=== PATIENT | female | born 1955 | race Caucasian/White ===

== ENCOUNTER → 2016-11-29 | Outpatient (CLI) | payer BC ==
[~2016-11-29] MED LIST: ACETAMINOPHEN TAB 325 MG TAB PO ONE; LORATADINE 10 MG TAB PO ONE; SODIUM CHLORIDE 0.9% 250 ML in EMPTY BAG 1 BAG IV PRN; SODIUM CHLORIDE 0.9% 500 ML in EMPTY BAG 1 BAG IV PRN
[2016-11-29 09:11] VITALS: TEMP 98
[2016-11-29 10:34] VITALS: BP 141/67; PULSE 76; RESP 16
== END | disposition home or self-care (01) ==
LOC: PROCWHC3 08:46
PROVIDERS: ATTEND Internal Medicine
DX: K50.113 Crohn's disease of large intestine with fistula (principal); D72.9 Disorder of white blood cells, unspecified
CPT/HCPCS: 96361; 96413; 96415; J1745

== ENCOUNTER → 2017-01-10 | Outpatient (CLI) | payer BC ==
[~2017-01-10] MED LIST changes: -ACETAMINOPHEN TAB 325 MG TAB PO ONE; -LORATADINE 10 MG TAB PO ONE
[2017-01-10 09:04] VITALS: TEMP 97.6
[2017-01-10 09:26] LABS: Basophils # (A) 0.1 k/uL (0-0.2); Basophils % (A) 1 %; CHCM 35.2; Eosinophils # (A) 0.1 k/uL (0-0.7); Eosinophils % (A) 2 %; HDW 3.15; HGB 13.3 gm/dL (11.4-16.0); Luc # (Auto) 0.13; Luc % (Auto) 3; Lymphocytes # (A) 0.2 k/uL (1.0-4.8); Lymphocytes % (A) 4 %; MCH 31.3 pg (25.0-35.0); MCHC 34.2 g/dL (31.0-37.0); MCV 91.4 fL (80.0-100.0); Mean Platelet Volume 6.6; Monocytes # (A) 0.3 k/uL (0-1.0); Monocytes % (A) 6 %; Neutrophils # (A) 4.3 k/uL (1.3-7.7); Neutrophils % (A) 84 %; RBC 4.26 m/uL (3.80-5.40); RDW 13.3 % (11.5-15.5); WBC 5.1 k/uL (3.8-10.6); WBC (Perox) 5.46
[2017-01-10 09:34] LABS: ALT 27 U/L (9-52); AST 20 U/L (14-36); Alkaline Phosphatase 113 U/L (38-126); Anion Gap 12 mmol/L; Blood Urea Nitrogen 16 mg/dL (7-17); Calcium 9.4 mg/dL (8.4-10.2); Carbon Dioxide 29 mmol/L (22-30); Chloride 102 mmol/L (98-107); Glucose 143 mg/dL (74-99); Non-African American GFR(MDRD) >60 (>60 ml/min/1.73 sqM); Potassium 4.5 mmol/L (3.5-5.1); Sodium 143 mmol/L (137-145); Total Bilirubin 0.6 mg/dL (0.2-1.3); Total Protein 7.9 g/dL (6.3-8.2)
[2017-01-10 10:11] VITALS: RESP 18
[2017-01-10 10:43] VITALS: BP 112/74; PULSE 55
== END | disposition home or self-care (01) ==
LOC: PROCWHC3 08:35
PROVIDERS: ATTEND Physician Assistant
DX: K50.80 Crohn's disease of both small and large intestine without complications (principal)
CPT/HCPCS: 80053; 85025; 96361; 96413; 96415; 36415; J1745

== ENCOUNTER → 2017-01-16 | Outpatient (CLI) | payer BC ==
--- NOTE | 2017-01-16 10:35 | WWHP ---
DATE OF SERVICE: 01/16/2017 CHIEF COMPLAINT: The patient is here for her routine gynecologic exam. HPI: This is a 61-year-old, G2, P2 with an LMP of 2008. Patient does experience hot flashes, which are tolerable and she is declining any kind of medication for this. 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 She states she has less symptoms when the Crohn disease is under control. She is on a new dose of Remicade, which seems to be controlling her Crohn disease fairly well. At this time she is no longer noticing any stool from the vagina. She is declining any surgical correction for the rectovaginal fistula and would like to continue to work on controlling the Crohn disease. PAST MEDICAL HISTORY: Crohn disease with related rectovaginal fistula since about 2006, chronic hypertension, seasonal allergies, and depression. MEDICATIONS: 1. Remicade IV infusion q.6 weeks. 2. Atenolol 50 mg daily. 3. Imuran 150 mg b.i.d. 4. Vitamin D supplement 1000 units daily. 5. Calcium supplement daily. ALLERGIES: No known drug allergies. PAST SURGICAL HISTORY: Cataract surgery 2015, sinus surgery 2013, hemorrhoid surgery in the past, colonoscopy 2008 and 2014, D&C in 03/2015. 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 She has no history of STDs and has been menopausal since 2007. Family history is unchanged from the 2016 H&P. SOCIAL HISTORY: She denies tobacco, alcohol, and drug use and has been since 1975 and has been disabled because of her Crohn disease and fistula. She is sexually active. REVIEW OF SYSTEMS: She has gained about 10 pounds over the last year. She denies respiratory or cardiac problems. GI: Occasional stomach upset, which she attributes to the Remicade. PHYSICAL EXAM: Blood pressure 143/85. Height 5 feet 1 inch. Weight 168 pounds. Temperature 98.5, pulse 69. This is a well-developed, well-nourished white female who is alert and oriented x3 in no acute distress. HEENT is within normal limits. NECK: Supple without mass or thyromegaly. CHEST AND LUNGS: Clear to auscultation. HEART: Regular rate and rhythm. Breasts are without mass or discharge. There is central left nipple inversion which she states it has been this way for most of her life. Axillary exam is negative for adenopathy. BACK: Negative for CVA tenderness. ABDOMEN: Soft, nontender, without palpable masses. PELVIC EXAM: External genitalia reveals some mild atrophy without lesions. Cervix and vagina reveal mild atrophy without lesions. The cervix is somewhat stenotic secondary to atrophy. No stool or blood is noted in the vagina. No rectovaginal fistula is visible. There is no significant prolapse. The uterus is midposition, nongravid size and nontender. There are no palpable adnexal masses or tenderness. Rectal and rectovaginal exam was refused by the patient. EXTREMITIES: Nontender. IMPRESSION: A 61-year-old menopausal female with a history of rectovaginal fistula with no significant symptoms at this time and no significant physical findings at this time noted with vaginal exam. PLAN: 1. Pap smear was performed. 2. Self breast examination was discussed. 3. Mammogram will be done today. 4. Osteoporosis prevention was discussed. 5. We have discussed her rectovaginal fistula. She will let me know if he she is having greater symptoms or she would consider surgical correction of the fistula. At this time, she will continue conservative management. 6. She will return in one year.
--- NOTE | 2017-01-17 11:22 | MM ---
Reason for exam: screening (asymptomatic). Last mammogram was performed 1 year and 2 months ago. History: Patient is postmenopausal and has history of colon cancer at age 60. Family history of breast cancer in mother at age 75. Physical Findings: A clinical breast exam by your physician is recommended on an annual basis and results should be correlated with mammographic findings. MG Screening Mammo w CAD Bilateral CC and MLO view(s) were taken. Prior study comparison: November 29, 2015, bilateral MG screening mammo w CAD. November 16, 2014, bilateral MG screening mammo w CAD. The breast tissue is heterogeneously dense. This may lower the sensitivity of mammography. Finding: There are typically benign round calcifications. There is no discrete abnormality. No significant changes in finding since November 29, 2015 and November 16, 2014. ASSESSMENT: Benign, BI-RAD 2 RECOMMENDATION: Routine screening mammogram of both breasts in 1 year.
== END | disposition home or self-care (01) ==
LOC: WWCWWP 08:29
PROVIDERS: ATTEND Obstetrics & Gynecology
DX: Z12.31 Encounter for screening mammogram for malignant neoplasm of breast (principal)

== ENCOUNTER → 2017-02-22 | Outpatient (CLI) | payer BC ==
[2017-02-22 08:57] VITALS: TEMP 98.3
[2017-02-22 09:40] VITALS: RESP 18
[2017-02-22 10:39] VITALS: BP 106/66; PULSE 70
== END | disposition home or self-care (01) ==
LOC: PROCWHC3 08:34
PROVIDERS: ATTEND Internal Medicine Gastroenterology
DX: K50.80 Crohn's disease of both small and large intestine without complications (principal)
CPT/HCPCS: 96361; 96413; 96415; J1745

== ENCOUNTER → 2017-04-05 | Outpatient (CLI) | payer BC ==
[2017-04-05 08:45] VITALS: TEMP 98.2
[2017-04-05 09:48] LABS: ALT 34 U/L (9-52); AST 28 U/L (14-36); Alkaline Phosphatase 103 U/L (38-126); Anion Gap 12 mmol/L; Blood Urea Nitrogen 17 mg/dL (7-17); Calcium 9.1 mg/dL (8.4-10.2); Carbon Dioxide 24 mmol/L (22-30); Chloride 104 mmol/L (98-107); Glucose 137 mg/dL (74-99); Non-African American GFR(MDRD) >60 (>60 ml/min/1.73 sqM); Potassium 4.4 mmol/L (3.5-5.1); Sodium 140 mmol/L (137-145); Total Bilirubin 0.6 mg/dL (0.2-1.3); Total Protein 7.7 g/dL (6.3-8.2)
[2017-04-05 10:09] LABS: Basophils % (A) 1 %; CH 33.1; CHCM 36.2; Eosinophils # (A) 0.1 k/uL (0-0.7); Eosinophils % (A) 3 %; HCT 36.4 % (34.0-46.0); HDW 3.33; HGB 12.9 gm/dL (11.4-16.0); Luc # (Auto) 0.16; Luc % (Auto) 4; Lymphocytes # (A) 0.3 k/uL (1.0-4.8); Lymphocytes % (A) 9 %; MCH 32.4 pg (25.0-35.0); MCHC 35.3 g/dL (31.0-37.0); MCV 91.7 fL (80.0-100.0); Mean Platelet Volume 6.9; Monocytes # (A) 0.4 k/uL (0-1.0); Monocytes % (A) 9 %; Neutrophils # (A) 2.8 k/uL (1.3-7.7); Neutrophils % (A) 74 %; RBC 3.97 m/uL (3.80-5.40); RDW 14.2 % (11.5-15.5); WBC 3.8 k/uL (3.8-10.6); WBC (Perox) 4.08
[2017-04-05 10:25] VITALS: BP 139/74; PULSE 55; RESP 16
== END | disposition home or self-care (01) ==
LOC: PROCWHC3 08:24
PROVIDERS: ATTEND Internal Medicine Gastroenterology
DX: K50.80 Crohn's disease of both small and large intestine without complications (principal)
CPT/HCPCS: 80053; 85025; 96413; 96415; 36415; J1745

== ENCOUNTER → 2017-05-17 | Outpatient (CLI) | payer BC ==
[2017-05-17 07:50] VITALS: RESP 16; TEMP 98.2
[2017-05-17 09:33] VITALS: BP 124/66; PULSE 67
== END | disposition home or self-care (01) ==
LOC: PROCWHC3 07:12
PROVIDERS: ATTEND Internal Medicine Gastroenterology
DX: K50.90 Crohn's disease, unspecified, without complications (principal)
CPT/HCPCS: 96413; 96415; J1745

== ENCOUNTER → 2017-07-04 | Outpatient (CLI) | payer BC ==
[~2017-07-04] MED LIST changes: -SODIUM CHLORIDE 0.9% 250 ML in EMPTY BAG 1 BAG IV PRN
[2017-07-04 09:42] VITALS: TEMP 98.2
[2017-07-04 10:18] VITALS: RESP 16
[2017-07-04 10:38] LABS: Basophils % (A) 1 %; CH 32.5; CHCM 35.2; Eosinophils # (A) 0.2 k/uL (0-0.7); Eosinophils % (A) 4 %; HCT 36.2 % (34.0-46.0); HDW 3.31; HGB 12.3 gm/dL (11.4-16.0); Luc # (Auto) 0.12; Luc % (Auto) 3; Lymphocytes # (A) 0.3 k/uL (1.0-4.8); Lymphocytes % (A) 6 %; MCH 31.6 pg (25.0-35.0); MCHC 34.1 g/dL (31.0-37.0); MCV 92.8 fL (80.0-100.0); Mean Platelet Volume 7.7; Monocytes # (A) 0.3 k/uL (0-1.0); Monocytes % (A) 6 %; Neutrophils # (A) 3.4 k/uL (1.3-7.7); Neutrophils % (A) 81 %; RDW 14.3 % (11.5-15.5); WBC 4.2 k/uL (3.8-10.6); WBC (Perox) 4.05
[2017-07-04 10:45] VITALS: BP 123/74; PULSE 61
[2017-07-04 10:49] LABS: ALT 66 U/L (9-52); AST 38 U/L (14-36); Alkaline Phosphatase 91 U/L (38-126); Anion Gap 13 mmol/L; Blood Urea Nitrogen 15 mg/dL (7-17); Calcium 9.2 mg/dL (8.4-10.2); Carbon Dioxide 23 mmol/L (22-30); Chloride 105 mmol/L (98-107); Glucose 150 mg/dL (74-99); Non-African American GFR(MDRD) >60 (>60 ml/min/1.73 sqM); Potassium 4.4 mmol/L (3.5-5.1); Sodium 141 mmol/L (137-145); Total Bilirubin 0.7 mg/dL (0.2-1.3); Total Protein 7.3 g/dL (6.3-8.2)
== END | disposition home or self-care (01) ==
LOC: PROCWHC3 08:26
PROVIDERS: ATTEND Internal Medicine Gastroenterology
DX: K50.80 Crohn's disease of both small and large intestine without complications (principal)
CPT/HCPCS: 80053; 85025; 96413; 96415; 36415; J1745

== ENCOUNTER → 2017-08-19 | Outpatient (CLI) | payer BC ==
[2017-08-19 09:08] VITALS: TEMP 97.8
[2017-08-19 09:47] LABS: ALT 61 U/L (9-52); AST 31 U/L (14-36); Alkaline Phosphatase 89 U/L (38-126); Anion Gap 10 mmol/L; Blood Urea Nitrogen 16 mg/dL (7-17); Carbon Dioxide 26 mmol/L (22-30); Chloride 104 mmol/L (98-107); Glucose 126 mg/dL (74-99); Non-African American GFR(MDRD) >60 (>60 ml/min/1.73 sqM); Potassium 4.3 mmol/L (3.5-5.1); Sodium 140 mmol/L (137-145); Total Bilirubin 0.4 mg/dL (0.2-1.3); Total Protein 7.2 g/dL (6.3-8.2)
[2017-08-19 10:14] LABS: Basophils # (A) 0.1 k/uL (0-0.2); Basophils % (A) 1 %; CH 30.6; CHCM 33.2; Eosinophils # (A) 0.1 k/uL (0-0.7); Eosinophils % (A) 4 %; HDW 3.39; HGB 11.8 gm/dL (11.4-16.0); Luc # (Auto) 0.16; Luc % (Auto) 5; Lymphocytes # (A) 0.2 k/uL (1.0-4.8); Lymphocytes % (A) 5 %; MCH 31.2 pg (25.0-35.0); MCHC 33.7 g/dL (31.0-37.0); MCV 92.6 fL (80.0-100.0); Mean Platelet Volume 6.8; Monocytes # (A) 0.3 k/uL (0-1.0); Monocytes % (A) 7 %; Neutrophils # (A) 2.7 k/uL (1.3-7.7); Neutrophils % (A) 78 %; RBC 3.78 m/uL (3.80-5.40); RDW 14.1 % (11.5-15.5); WBC 3.5 k/uL (3.8-10.6)
[2017-08-19 10:33] VITALS: BP 132/73; PULSE 57; RESP 16
== END ==
LOC: PROCWHC3 08:37
PROVIDERS: ATTEND Internal Medicine Gastroenterology
DX: K50.80 Crohn's disease of both small and large intestine without complications (principal); Z51.81 Encounter for therapeutic drug level monitoring
CPT/HCPCS: 80053; 85025; 96413; 96415; 36415; J1745

== ENCOUNTER → 2017-10-08 | Outpatient (CLI) | payer BC | END | disposition home or self-care (01) | LOC: PROCWHC3 09:24 | PROVIDERS: ATTEND Internal Medicine Gastroenterology | DX: Z53.9 Procedure and treatment not carried out, unspecified reason (principal) ==

== ENCOUNTER → 2017-10-08 | Outpatient (CLI) | payer BC ==
[2017-10-08 10:55] LABS: CH 28.3; CHCM 32.2; HCT 36.5 % (34.0-46.0); HDW 3.12; Hypochromasia Slight; MCH 29.1 pg (25.0-35.0); MCV 88.1 fL (80.0-100.0); Mean Platelet Volume 7.5; RBC 4.14 m/uL (3.80-5.40); RDW 14.3 % (11.5-15.5); WBC 4.3 k/uL (3.8-10.6)
[2017-10-08 11:31] LABS: ALT 78 U/L (9-52); AST 40 U/L (14-36); Alkaline Phosphatase 83 U/L (38-126); Anion Gap 8 mmol/L; Blood Urea Nitrogen 17 mg/dL (7-17); C Reactive Protein <5.0 mg/L (<10.0); Calcium 9.6 mg/dL (8.4-10.2); Carbon Dioxide 29 mmol/L (22-30); Chloride 103 mmol/L (98-107); Glucose 136 mg/dL (74-99); Non-African American GFR(MDRD) >60 (>60 ml/min/1.73 sqM); Potassium 5.2 mmol/L (3.5-5.1); Sodium 140 mmol/L (137-145); Total Bilirubin 0.7 mg/dL (0.2-1.3); Total Protein 7.2 g/dL (6.3-8.2)
[2017-10-08 12:18] LABS: Erythrocyte Sedimentation Rate 23 mm/hr (0-20)
== END | disposition home or self-care (01) ==
LOC: LABWHC1 10:00
PROVIDERS: ATTEND Internal Medicine Gastroenterology
DX: K50.90 Crohn's disease, unspecified, without complications (principal)
CPT/HCPCS: 36415; 80053; 85027; 85652; 86140

== ENCOUNTER → 2017-10-15 | Outpatient (CLI) | payer BC ==
[~2017-10-15] MED LIST changes: +TUBERCULIN PPD (SKIN TEST) 5 UNIT/0.1 ML (MDV) VIAL INTRADERMA ONE
[2017-10-15 09:36] VITALS: RESP 16; TEMP 98.1
[2017-10-15 11:07] VITALS: BP 147/69; PULSE 64
== END | disposition home or self-care (01) ==
LOC: PROCWHC3 09:05
PROVIDERS: ATTEND Internal Medicine Gastroenterology
DX: K50.80 Crohn's disease of both small and large intestine without complications (principal); Z51.81 Encounter for therapeutic drug level monitoring
CPT/HCPCS: 96413; 96415; 86580; J1745

== ENCOUNTER → 2018-01-07 | Outpatient (CLI) | payer BC ==
[2018-01-07 13:39] LABS: Basophils % (A) 1 %; Eosinophils # (A) 0.1 k/uL (0-0.7); Eosinophils % (A) 2 %; HCT 37.2 % (34.0-46.0); HGB 11.8 gm/dL (11.4-16.0); Hypochromasia Slight; Lymphocytes # (A) 0.4 k/uL (1.0-4.8); Lymphocytes % (A) 8 %; MCH 27.6 pg (25.0-35.0); MCHC 31.9 g/dL (31.0-37.0); MCV 86.7 fL (80.0-100.0); Mean Platelet Volume 7.8; Monocytes # (A) 0.4 k/uL (0-1.0); Monocytes % (A) 8 %; Neutrophils # (A) 3.8 k/uL (1.3-7.7); Neutrophils % (A) 79 %; Platelet Count 300 k/uL (150-450); RBC 4.29 m/uL (3.80-5.40); RDW 14.8 % (11.5-15.5); WBC 4.8 k/uL (3.8-10.6)
== END | disposition home or self-care (01) ==
LOC: LABWHC1 12:44
PROVIDERS: ATTEND Internal Medicine Gastroenterology
DX: K50.90 Crohn's disease, unspecified, without complications (principal)
CPT/HCPCS: 36415; 85025

== ENCOUNTER → 2018-01-21 | Outpatient (CLI) | payer BC ==
--- NOTE | 2018-01-21 13:42 | WWHP ---
[facility] - HISTORY AND PHYSICAL DATE OF DICTATION: 01/21/2018 CHIEF COMPLAINT: The patient is here for her routine gynecologic exam and mammogram. HPI: This is a 62-year-old G2, P2, with an LMP of 2007. The patient is without gynecologic complaints and denies any postmenopausal bleeding. She does have a history of rectovaginal fistula associated with Crohn's disease. She states she has not had any problems with this over the past year. PAST MEDICAL HISTORY: Crohn's disease with related rectovaginal fistula since about 2006, chronic hypertension, seasonal allergies and depression. MEDICATIONS: Remicade IV infusions Q 6 weeks. Atenolol 50 mg daily. Imuran 150 mg daily, vitamin D supplement 1000 units daily, but she has not been taking this regularly. Also, calcium supplement daily, which has also not been taken regularly. Multivitamin 1 daily. Fish oil supplement daily. Co Q10 daily. ALLERGIES: No known drug allergies. PAST SURGICAL HISTORY: Cataract surgery, sinus surgery, hemorrhoid surgery, and D and Cs in the past. Colonoscopy 2008 and in 2014. 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 She has been menopausal since 2007. FAMILY HISTORY: Brother had ulcerative colitis and lung cancer. Father had lung cancer. Mother had breast cancer. REVIEW OF SYSTEMS: She has lost 3 pounds over the last year. She denies respiratory, cardiac or GI problems. She has felt tired recently. PHYSICAL EXAM: Blood pressure 149/88, height 5 feet 2 inches, weight 165 pounds, temperature 98.0, pulse 68, BMI 30. This is a well-developed, well-nourished, white female, who is alert and oriented x3, in no acute distress. HEENT is within normal limits. NECK: Supple without mass or thyromegaly. Chest. LUNGS: Clear to auscultation. HEART: Regular rate and rhythm. Breasts are without mass or discharge. The left nipple is inverted. This has been this way most of her life. Axillary exam is negative for adenopathy. Back negative for CVA tenderness. ABDOMEN: Soft, nontender, without palpable masses. Pelvic exam external genitalia, reveals mild atrophy without lesions. Cervix and vagina reveals mild atrophy without lesions. There is no evidence of prolapse. The uterus is mid position, nongravid size and nontender. There are no palpable adnexal masses or tenderness. Rectovaginal exam was refused by the patient. EXTREMITIES: Nontender. IMPRESSION: 1. 62-year-old menopausal female with normal gynecologic exam. 2. History of rectovaginal fistula, which is not visible on examination and is asymptomatic at this time. PLAN: 1. Pap smear was deferred since she had a normal one last year. 2. Self breast examination was discussed. 3. Screening mammogram will be done today. 4. Osteoporosis prevention was discussed. 5. She will return in 1 year and p.r.n. MMODL / IJN: [id number] /
--- NOTE | 2018-01-23 08:01 | MM ---
Reason for exam: screening (asymptomatic). Last mammogram was performed 1 year ago. History: Patient is postmenopausal. Family history of breast cancer in mother at age 75. Physical Findings: A clinical breast exam by your physician is recommended on an annual basis and results should be correlated with mammographic findings. MG 3D Screening Mammo W/Cad Bilateral CC and MLO view(s) were taken. Prior study comparison: January 16, 2017, bilateral MG screening mammo w CAD. November 29, 2015, bilateral MG screening mammo w CAD. The breast tissue is heterogeneously dense. This may lower the sensitivity of mammography. No significant changes when compared with prior studies. ASSESSMENT: Negative, BI-RAD 1 RECOMMENDATION: Routine screening mammogram of both breasts in 1 year.
== END | disposition home or self-care (01) ==
LOC: WWCWWP 12:25
PROVIDERS: ATTEND Obstetrics & Gynecology
DX: Z12.31 Encounter for screening mammogram for malignant neoplasm of breast (principal)
CPT/HCPCS: 77063; 77067

== ENCOUNTER → 2018-04-01 | Outpatient (CLI) | payer BC ==
[2018-04-01 11:57] LABS: Basophils # (A) 0.1 k/uL (0-0.2); Basophils % (A) 1 %; Eosinophils # (A) 0.1 k/uL (0-0.7); Eosinophils % (A) 3 %; HCT 36.1 % (34.0-46.0); HGB 11.7 gm/dL (11.4-16.0); Hypochromasia Slight; Lymphocytes # (A) 0.4 k/uL (1.0-4.8); Lymphocytes % (A) 8 %; MCH 26.4 pg (25.0-35.0); MCHC 32.3 g/dL (31.0-37.0); MCV 81.6 fL (80.0-100.0); Mean Platelet Volume 6.8; Monocytes # (A) 0.3 k/uL (0-1.0); Monocytes % (A) 8 %; Neutrophils # (A) 3.2 k/uL (1.3-7.7); Neutrophils % (A) 76 %; Platelet Count 267 k/uL (150-450); RBC 4.42 m/uL (3.80-5.40); RDW 14.7 % (11.5-15.5); WBC 4.3 k/uL (3.8-10.6)
[2018-04-01 11:59] LABS: Anion Gap 15 mmol/L; Blood Urea Nitrogen 18 mg/dL (7-17); Carbon Dioxide 26 mmol/L (22-30); Chloride 103 mmol/L (98-107); Glucose 100 mg/dL (74-99); Potassium 4.5 mmol/L (3.5-5.1); Sodium 144 mmol/L (137-145); Total Protein 7.8 g/dL (6.3-8.2)
[2018-04-01 12:00] LABS: ALT 49 U/L (9-52); AST 29 U/L (14-36); Albumin 4.5 g/dL (3.5-5.0); Alkaline Phosphatase 110 U/L (38-126); Total Bilirubin 0.4 mg/dL (0.2-1.3)
== END ==
LOC: LABWHC1 11:15
PROVIDERS: ATTEND Internal Medicine Gastroenterology
DX: K50.90 Crohn's disease, unspecified, without complications (principal)
CPT/HCPCS: 36415; 80053; 85025

== ENCOUNTER → 2018-10-07 | Outpatient (CLI) | payer BC | END | disposition home or self-care (01) | LOC: LABWHC1 09:55 | PROVIDERS: ATTEND Internal Medicine Gastroenterology | DX: K50.90 Crohn's disease, unspecified, without complications (principal) | CPT/HCPCS: 36415 ==

== ENCOUNTER → 2018-10-23 | Outpatient (CLI) | payer BC ==
[2018-10-23 11:16] LABS: Anisocytosis Moderate; Basophils % (A) 1 %; Eosinophils # (A) 0.1 k/uL (0-0.7); Eosinophils % (A) 3 %; HCT 39.5 % (34.0-46.0); Hypochromasia Slight; Lymphocytes # (A) 0.2 k/uL (1.0-4.8); Lymphocytes % (A) 5 %; MCH 26.7 pg (25.0-35.0); Mean Platelet Volume 6.8; Microcytosis Slight; Monocytes # (A) 0.2 k/uL (0-1.0); Monocytes % (A) 6 %; Neutrophils # (A) 3.2 k/uL (1.3-7.7); Neutrophils % (A) 83 %; Platelet Count 226 k/uL (150-450); RBC 4.73 m/uL (3.80-5.40); RDW 21.8 % (11.5-15.5); WBC 3.8 k/uL (3.8-10.6)
[2018-10-23 11:24] LABS: HGB 12.6 gm/dL (11.4-16.0); MCV 83.5 fL (80.0-100.0)
[2018-10-23 18:57] LABS: Iron Saturation 57.26 (12.00-45.00)
== END ==
LOC: LABWHC1 09:53
PROVIDERS: ATTEND Internal Medicine Gastroenterology
DX: D50.9 Iron deficiency anemia, unspecified (principal)
CPT/HCPCS: 36415; 82728; 83540; 83550; 85025

== ENCOUNTER → 2018-11-05 | Outpatient (CLI) | payer BC ==
--- NOTE | 2018-11-05 11:49 | MM ---
Reason for exam: clinical finding. Last mammogram was performed 9 months ago. History: Patient is postmenopausal. Family history of breast cancer in mother at age 69. Physical Findings: Nurse Summary: 0.5cm nodule in the right breast at 10 o'clock (nurse dw). MG 3D Diag Mammo W/Cad RT CC and MLO view(s) were taken of the right breast. Prior study comparison: January 21, 2018, bilateral MG 3d screening mammo w/cad. January 16, 2017, bilateral MG screening mammo w CAD. The breast tissue is heterogeneously dense. This may lower the sensitivity of mammography. There are benign appearing round calcifications in the right breast. There is no discrete abnormality. These results were verbally communicated with the patient and result sheet given to the patient on 11/05/18. ASSESSMENT: Benign, BI-RAD 2 RECOMMENDATION: Return to routine screening mammogram schedule for both breasts. Back on schedule.
--- NOTE | 2018-11-05 11:50 | USB ---
Reason for exam: clinical finding. History: Patient is postmenopausal. Family history of breast cancer in mother at age 69. US Breast RT Right complete breast ultrasound includes all four quadrants, the retroareolar region and axilla. Finding demonstrates no cystic or solid lesion seen. These results were verbally communicated with the patient and result sheet given to the patient on 11/05/18. ASSESSMENT: Negative, BI-RAD 1 RECOMMENDATION: Return to routine screening mammogram schedule for both breasts. Back on schedule.
--- NOTE | 2018-11-05 13:53 | WWPN ---
[facility] - PROGRESS NOTE The patient has called regarding a palpable breast lump. She first noticed breast soreness on the right side about one week ago. Upon examining herself says she feels a pea-sized lump at approximately the 10 o'clock position. This is new for her. The patient had a benign mammogram in January 2018. She is very concerned about this and is requesting to have breast imaging studies done as soon as possible. There was not an opening until 11/27/2018 at [facility]. She has an appointment for a diagnostic right breast mammogram and ultrasound tomorrow at [facility]. An order slip will be sent to [facility] for these studies because of the breast lump and soreness. MMODL / IJN: [id number] /
== END | disposition home or self-care (01) ==
LOC: RADMAMWWP 10:48
PROVIDERS: ATTEND Obstetrics & Gynecology
DX: N63.10 Unspecified lump in the right breast, unspecified quadrant (principal); N64.4 Mastodynia
CPT/HCPCS: 77061; 77065

== ENCOUNTER → 2019-02-03 | Outpatient (CLI) | payer BC ==
[2019-02-03 10:38] VITALS: BP 127/81; PULSE 54; RESP 18; TEMP 98.2; BMI 30.2
--- NOTE | 2019-02-03 11:31 | P.HPOB ---
History of Present Illness H&P Date: 02/03/19 Chief Complaint: The patient is here for her routine gynecologic exam. This is a 63-year-old with an LMP of 2007. The patient is without gynecologic complaints and denies any postmenopausal bleeding. She has a history of a rectovaginal fistula which has been followed conservatively. She denies any vaginal discharge at this time. She states she has an occasional slight vaginal discharge associated with the fistula. She states she had bladder pressure symptoms in November and was treated by her primary care physician for a UTI. She states her urine test was negative for infection and she states she had a negative pelvic ultrasound done at [facility]. Her urinary symptoms and bladder pressure completely resolved. Review of Systems Her weight has been stable. She denies respiratory or cardiac problems. G.I.: occasional loose stool associated with her Crohn's disease. Past Medical History Past Medical History: Hyperlipidemia, Hypertension, Respiratory Disorder Additional Past Medical History / Comment(s): neck pain,steroid injections for neck, insomnia, crohns dz, rectal vaginal fistulas. Seasonal allergies. 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 She does have a history of a rectovaginal fistula since 2006 and this was associated with her Crohn's disease. History of Any Multi-Drug Resistant Organisms: None Reported Additional Past Surgical History / Comment(s): tear duct surgery x2, hemorrhoid surgery, carpal tunnel surgery sarah, cataract surgery, D&Cs, colonoscopy 2014. Past Anesthesia/Blood Transfusion Reactions: No Reported Reaction Past Psychological History: Anxiety, Depression Smoking Status: Never smoker Past Alcohol Use History: None Reported Past Drug Use History: None Reported Additional History: She has been since 1975 and is disabled. - Past Family History Brother(s) Family Medical History: Cancer Additional Family Medical History / Comment(s): Ulcerative colitis and lung cancer. Mother Family Medical History: Cancer Additional Family Medical History / Comment(s): Breast cancer Father Family Medical History: Cancer Additional Family Medical History / Comment(s): Lung cancer Medications and Allergies Home Medications Medication Instructions Recorded Confirmed Type Atenolol [Tenormin] 50 mg PO DAILY 04/26/14 02/03/19 History azaTHIOprine [Imuran] 3 tab PO DAILY 04/26/14 02/03/19 History inFLIXimab [Remicade] 600 mg IVPB DIRECTED 12/13/14 02/03/19 History Multivitamins, Thera [Multivitamin 1 tab PO DAILY 05/17/17 02/03/19 History (formulary)] [place]-3 Fatty Acids/Fish Oil [Fish 1 each PO DAILY 05/17/17 02/03/19 History Oil 1,000 mg Softgel] Ubidecarenone [Co Q-10] 100 mg PO DAILY 05/17/17 02/03/19 History Allergies Allergy/AdvReac Type Severity Reaction Status Date / Time No Known Allergies Allergy Verified 02/03/19 10:32 Exam Vital Signs Temp Pulse Resp BP Pulse Ox 02/03/19 10:35 98.2 F 54 L 18 127/81 96 Intake and Output 02/02/19 02/03/19 02/03/19 22:59 06:59 14:59 Other: Weight 74.843 kg Height 5'2", weight 165 pounds, BMI 30.2. This is a well-developed well-nourished white female who is alert and oriented times 3 in no acute distress. HEENT: Within normal limits. NECK: Supple without mass or thyromegaly. CHEST AND LUNGS: Clear to auscultation. HEART: Regular rate and rhythm. BREASTS: Are without mass or discharge. AXILLARY EXAM: Negative for adenopathy. BACK: Negative for CVA tenderness. ABDOMEN: Soft, nontender, without palpable masses. PELVIC EXAM: Normal external genitalia with mild atrophy. Cervix and vagina appear normal with mild atrophy. There is no unusual discharge. There is no evidence of prolapse. No rectovaginal fistula could be seen or palpated with the vaginal exam. The uterus is mid to anterior position, nongravid size and nontender. There are no palpable adnexal masses or tenderness. RECTAL EXAM: rectal exam was refused by the patient. EXTREMITIES: Nontender. IMPRESSION: 1. 63-year-old menopausal female with normal gynecologic exam. 2. History of rectovaginal fistula associated with her Crohn's disease which is not seen or felt on exam today. The patient is currently asymptomatic. 3. Recent benign right diagnostic mammogram and right breast ultrasound in October 2018. PLAN: 1. Pap smear was performed. 2. Self breast awareness was discussed with the patient. 3. Bilateral screening mammogram will be done in 3 months. The order slip was given to the patient for this. This will not be done today since her right breast was evaluated recently in October. Her previous mammograms were reviewed with the radiologist, Dr. Seth. She suggests waiting for the bilateral screening mammogram and this will be done in 3 months. 4. Osteoporosis prevention was discussed. I have stressed the importance of adequate calcium, vitamin D and regular exercise. Recommended amounts of calcium and vitamin D were also discussed. She had a normal bone density test done on 04/03/2016. We will repeat this in approximately 2020. 5. She had a pelvic ultrasound done in November at [facility]. She will sign a records release to obtain this report. 6. She will return in one year for her annual well woman exam. It will be okay if she does this one year after her next mammogram, approximately April 2020.
== END ==
LOC: WWCWWP 10:23
PROVIDERS: ATTEND Obstetrics & Gynecology
DX: Z53.9 Procedure and treatment not carried out, unspecified reason (principal)

== ENCOUNTER → 2019-04-21 | Outpatient (CLI) | payer BC ==
--- NOTE | 2019-04-22 12:11 | MM ---
Reason for exam: screening (asymptomatic). Last mammogram was performed 6 months ago. History: Patient is postmenopausal. Family history of breast cancer in mother at age 69. Physical Findings: A clinical breast exam by your physician is recommended on an annual basis and results should be correlated with mammographic findings. MG 3D Screening Mammo W/Cad Bilateral CC and MLO view(s) were taken. Prior study comparison: November 05, 2018, right breast MG 3d diag mammo w/cad RT. January 21, 2018, bilateral MG 3d screening mammo w/cad. The breast tissue is heterogeneously dense. This may lower the sensitivity of mammography. There are benign appearing round calcifications bilaterally. There is no discrete abnormality. ASSESSMENT: Benign, BI-RAD 2 RECOMMENDATION: Routine screening mammogram of both breasts in 1 year.
== END ==
LOC: RADMAMWWP 09:45
PROVIDERS: ATTEND Obstetrics & Gynecology
DX: Z12.31 Encounter for screening mammogram for malignant neoplasm of breast (principal)
CPT/HCPCS: 77063; 77067

== ENCOUNTER → 2019-09-13 | Outpatient (CLI) | payer BC ==
--- NOTE | 2019-09-13 10:57 | MR ---
EXAMINATION TYPE: MR angio head wo con DATE OF EXAM: 09/13/2019 10:34 AM COMPARISON: Previous study dated 01/28/2011 HISTORY: Cerebral aneurysm / [place] TECHNIQUE: Time of flight images focusing on the [place] were performed without contrast. FINDINGS: The vertebral arteries are codominant. Neither posterior communicating artery is visualized . Both ophthalmic arteries are visualized. There is normal arborization of the middle cerebral arteri es. Both anterior cerebral arteries are patent. The posterior circulation appears normal. There is no sizable aneurysm. IMPRESSION: NORMAL MRI OF THE [place].
== END | disposition home or self-care (01) ==
LOC: RADMRIMAIN 09:58
PROVIDERS: ATTEND Psychiatry & Neurology Neurology
DX: I67.1 Cerebral aneurysm, nonruptured (principal); G44.53 Primary thunderclap headache
CPT/HCPCS: 70544

== ENCOUNTER → 2019-09-15 | Outpatient (CLI) | payer BC ==
--- NOTE | 2019-09-16 11:44 | ECHOF ---
Referral Reason:R00.2 palpitations MEASUREMENTS -------- HEIGHT: 157.5 cm WEIGHT: 77.1 kg BP: RVIDd: 2.9 cm (< 3.3) IVSd: 1.1 cm (0.6 - 1.1) LVIDd: 4.6 cm (3.9 - 5.3) LVPWd: 1.2 cm (0.6 - 1.1) IVSs: 1.5 cm LVIDs: 3.0 cm LVPWs: 1.8 cm LAESV Index (A-L): 26.90 ml/m Ao Diam: 2.5 cm (2.0 - 3.7) AV Cusp: 1.6 cm (1.5 - 2.6) MV EXCURSION: 19.132 mm (> 18.000) MV EF SLOPE: 83 mm/s (70 - 150) EPSS: 0.7 cm MV E Jeff: 0.86 m/s MV DecT: 259 ms MV A Jeff: 0.77 m/s MV E/A Ratio: 1.13 RAP: 5.00 mmHg RVSP: 16.53 mmHg FINDINGS -------- Sinus rhythm with extra systolic beats. This was a technically good study. The left ventricular size is normal. There is borderline concentric left ventricular hypertrophy. Overall left ventricular systolic function is normal with, an EF between 60 - 65 %. The diastolic filling pattern is normal for the age of the patient 12.24. The right ventricle is normal in size. Normal LA size by volume 22+/-6 ml/m2. The right atrial size is normal. Interatrial and interventricular septum intact. The aortic valve is trileaflet and appears structurally normal. There is no evidence of aortic regu rgitation. There is no evidence of aortic stenosis. Mild mitral regurgitation is present. Mild tricuspid regurgitation present. There is no evidence of pulmonary hypertension. The right v entricular systolic pressure, as measured by Doppler, is 16.53mmHg. Trace/mild (physiologic) pulmonic regurgitation. The aortic root size is normal. Normal inferior vena cava with normal inspiratory collapse consistent with estimated right atrial pre ssure of 5 mmHg. There is no pericardial effusion. CONCLUSIONS -------- 1. Sinus rhythm with extra systolic beats. 2. This was a technically good study. 3. The left ventricular size is normal. 4. There is borderline concentric left ventricular hypertrophy. 5. Overall left ventricular systolic function is normal with, an EF between 60 - 65 %. 6. The diastolic filling pattern is normal for the age of the patient 12.24 7. The right ventricle is normal in size. 8. Normal LA size by volume 22+/-6 ml/m2. 9. The right atrial size is normal. 10. Interatrial and interventricular septum intact. 11. The aortic valve is trileaflet and appears structurally normal. 12. There is no evidence of aortic regurgitation. 13. There is no evidence of aortic stenosis. 14. Mild mitral regurgitation is present. 15. Mild tricuspid regurgitation present. 16. There is no evidence of pulmonary hypertension. 17. The right ventricular systolic pressure, as measured by Doppler, is 16.53mmHg. 18. Trace/mild (physiologic) pulmonic regurgitation. 19. The aortic root size is normal. 20. Normal inferior vena cava with normal inspiratory collapse consistent with estimated right atrial pressure of 5 mmHg. 21. There is no pericardial effusion. PRODUCTION WELDING SUPERVISOR: MaryA nne Byers RDCS
--- NOTE | 2019-09-19 13:05 | HM ---
HOLTER MONITOR REPORT A 24 hour DCG report Patient in her diary indicated palpitations all day long. Heart rhythm appears to be sinus with a heart rate ranging from 49 to 106 beats per minute with average heart rate of 67 beats per minute. There was no evidence of any significant ventricular or supraventricular ectopy. Rare isolated PVCs were noted. There was a one 7 beat run of what seems to be a PAT. There was some sinus arrhythmia and some blocked PACs were also noted. SUMMARY: This is an overall unremarkable 24 hour DCG recording. FINAL IMPRESSION: Predominant rhythm is sinus. There was 1 short run of PAT of about less than 10 beats. No symptoms were reported specifically at that time. Patient complained of palpitations all day. However, no significant ventricular or supraventricular ectopy or any bradyarrhythmia was noted. MMODL / IJN: [id number] /
== END | disposition home or self-care (01) ==
LOC: RADECHMAIN 11:15
PROVIDERS: ATTEND Family Medicine
DX: I08.1 Rheumatic disorders of both mitral and tricuspid valves (principal); I37.1 Nonrheumatic pulmonary valve insufficiency
CPT/HCPCS: 93225; 93226; 93306

== ENCOUNTER → 2019-10-12 | Outpatient (CLI) | payer BC | END | disposition home or self-care (01) | LOC: LABWHC1 12:37 | PROVIDERS: ATTEND Internal Medicine Gastroenterology | DX: K50.90 Crohn's disease, unspecified, without complications (principal) | CPT/HCPCS: 36415; 86480 ==

== ENCOUNTER → 2019-12-15 | Day surgery (SDC) | payer BC ==
[~2019-12-15] MED LIST changes: +GLUCAGON 1 MG/ML VIAL IM STA; -SODIUM CHLORIDE 0.9% 500 ML in EMPTY BAG 1 BAG IV PRN; -TUBERCULIN PPD (SKIN TEST) 5 UNIT/0.1 ML (MDV) VIAL INTRADERMA ONE
[2019-12-15 10:25] VITALS: BP 143/76; PULSE 63; RESP 16; TEMP 98.2
--- NOTE | 2019-12-15 13:51 | MR ---
EXAMINATION TYPE: MR Enterography DATE OF EXAM: 12/15/2019 COMPARISON: CT abdomen and pelvis July 14, 2013. HISTORY: Crohn's disease, Abdomen pain CONTRAST: Standard multiplanar, multisequence imaging of the abdomen is performed without and with IV contrast, patient is injected with 7.5 mL intravenous Gadavist gadolinium contrast. Oral Volumen was given as per enterography protocol. FINDINGS: Exam noted is slightly suboptimal as patient could not drink entire standard Volumen dose p er normal protocol. Bowel: Satisfactory distention of stomach without suspicious eccentric wall thickening or mural enhan cement. Duodenal sweep shows less than optimal distention without suspicious eccentric wall thickenin g or enhancement. Similar jejunal loops left abdomen show less than optimal distention without defini tive abnormal eccentric mucosal thickening or mural enhancement. Some fluid-filled ileal loops are al so less than optimally distended making evaluation suboptimal. Terminal ileum is seen best near postc ontrast coronal image 137. This shows poor distention without suspicious eccentric mural thickening o r wall enhancement. There is one segment of distal ileum in the pelvis that shows poor distention wit h suspicious concentric mural enhancement over a roughly 4 cm segment near coronal image 210 for refe rence. In addition adjacent bowel loops in the anterior to central pelvis show slight fluid-filled pr ominence and areas of marked narrowing. This all catheters to a area centrally seen best image 9 seri es 301. Visualized portion of colon is fecal filled without suspicious wall thickening. Occasional di verticula in the left and sigmoid colon is present. Other: Lung bases are clear. Gallbladder shows some increased T1 and diminished T2 signal suggesting diffuse sludge-filled. No abnormal wall thickening is present. Spleen and pancreas are normal in size . No suspicious adrenal masses. 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 No abdominal ascites is seen. Aorta shows no aneurysmal change or significant stenosis in its main branches. Some spinal canal effacement L4-L5 level coronal image 22 corresponding to axi al image 22 as there is facet arthropathy and disc herniation present. IMPRESSION: Suboptimal study. Some evidence of chronic inflammation with suspected adhesions in the a nterior to central pelvis tethering some of the distal small bowel loops. I do suspect a short segmen t of acute inflammation in a distal ileal loop near site of adhesions. There is no active inflammatio n at the level of terminal ileum on current study.
== END ==
LOC: RADMRIMAIN 09:55
PROVIDERS: ATTEND Internal Medicine Gastroenterology
DX: K50.90 Crohn's disease, unspecified, without complications (principal)
CPT/HCPCS: 96372; 72197; 74183; J1610; A9585

== ENCOUNTER → 2022-02-27 | Outpatient (CLI) | payer BC ==
--- NOTE | 2022-02-27 16:51 | BD ---
EXAMINATION TYPE: Axial Bone Density DATE OF EXAM: 02/27/2022 COMPARISON: 04/03/16 CLINICAL HISTORY: 66 years year old Female. ICD-10 CODE: Z78.0 POSTMENOPAUSAL STATUS Height: 5'3 Weight: 168 FRAX RISK QUESTIONS: Secondary Osteoporosis: RISK FACTORS HISTORY OF: Postmenopausal woman: y MEDICATIONS: Additional Medications: chron disease, high blood pressure, Additional History: EXAM MEASUREMENTS: Bone mineral densitometry was performed using the [employer]. Bone mineral density as measured about the Lumbar spine is: ----- L1-L4(G/cm2): 1.209 T Score Values are as follows: ----- L1: 0.1 ----- L2: 0.0 ----- L3: 0.4 ----- L4: 0.3 ----- L1-L4: 0.2 Bone mineral density has: Decreased -4.2% since study of: 04/03/2016 Bone mineral density about the R hip (g/cm2): 0.936 Bone mineral density about the L hip (g/cm2): 0.928 T Score values are as follows: -----R Neck: -0.7 -----L Neck: -0.8 -----R Total: 0.2 -----L Total: 0.3 Bone mineral density has: Increased 1.3% since study of: 03/28/2016 FRAX%s: The graph provided illustrates a 9.8 chance for a major osteoporotic fx and a 0.7 chance for the hips probability for fx in 10 years time. IMPRESSION: Normal (Values between +1 and -1 indicate normal bone mass). Consider repeating this study in 5 year s or sooner if there is some new clinical indication. NOTE: T-SCORE=SD OF THE YOUNG ADULT MEAN.
== END | disposition home or self-care (01) ==
LOC: RADBDWWP 11:19
PROVIDERS: ATTEND Obstetrics & Gynecology
DX: Z78.0 Asymptomatic menopausal state (principal)
CPT/HCPCS: 77080

== ENCOUNTER → 2022-05-24 | Outpatient (CLI) | payer BC ==
--- NOTE | 2022-05-24 09:47 | US ---
EXAMINATION TYPE: US carotid duplex BILAT DATE OF EXAM: 05/24/2022 COMPARISON: NONE CLINICAL HISTORY: I65.23 CAROTID STENOSIS. Carotid Stenosis EXAM MEASUREMENTS: RIGHT: Peak Systolic Velocity (PSV) cm/sec ----- Right CCA: 79.8 ----- Right ICA: 94.1 ----- Right ECA: 78.8 ICA/CCA ratio: 1.2 RIGHT: End Diastole cm/sec ----- Right CCA: 27.0 ----- Right ICA: 34.7 ----- Right ECA: 12.7 LEFT: Peak Systolic Velocity (PSV) cm/sec ----- Left CCA: 66.8 ----- Left ICA: 93.0 ----- Left ECA: 70.3 ICA/CCA ratio: 1.4 LEFT: End Diastole cm/sec ----- Left CCA: 17.6 ----- Left ICA: 29.2 ----- Left ECA: 11.9 VERTEBRALS (direction of flow): Right Vertebral: Antegrade Left Vertebral: Antegrade Rhythm: Normal IMPRESSION: No significant stenosis seen on today's exam. Criteria for Assigning % of Stenosis / Diameter reduction (Estimation based on the indirect measurements of the internal carotid artery velocities (ICA PSV). 1. Normal (no stenosis)=ICA PSV < 125 cm/s: ratio < 2.0: ICA EDV<40 cm/s. 2. Less than 50% stenosis=ICA PSV < 125 cm/s: ratio < 2.0: ICA EDV<40 cm/s. 3. 50 to 69% stenosis=ICA PSV of 125 to 230 cm/s: ration 2.0 ? 4.0: ICA EDV 40-100 cm/s. 4. Greater than 70% stenosis to near occlusion= ICA PSV > 230 cm/s: ratio > 4.0: ICA EDV > 100 cm/s. 5. Near occlusion= ICA PSV velocities may be low or undetectable: variable ratio and ICA EDV. 6. Total occlusion=unable to detect flow.
--- NOTE | 2022-05-24 11:33 | CA ---
Exercise Stress Test Report Name: Sammi Barba Exam Date: 05/24/2022 10:03 Exam Location: [facility] Ht (in): 62 Wt (lb): BSA: Ordering Phys: Reyes Scott MD Referring Phys: Reyes Scott MD Technologist: Kishor Carrillo Age: 67 Gender: F : 1955 Procedure CPT: Indications: I25.10 Atherosclerotic heart disease ICD-10 Codes: Patient History: Medications: Meds past 24 hrs: Pretest Chest Pain: STRESS TEST [place] Protocol Exercise Duration (min:sec): 06:[address] Depressions (mm): Angina Score: Villagran Score: Resting HR (bpm): 76 Peak HR (bpm): 136 Resting BP (mmHg): 173 / 91 Peak BP (mmHg): 205 / 56 MPHR: 154 Target HR: 131 % MPHR: 88 METS: 7.4 Total Dose: Peak Dose: Atropine: Double Product: 96705 BP Response: Stress Termination: Reached target heart rate Stress Symptoms: NO SYMPTOMS Stress Summary: ECG ANALYSIS Resting ECG: Stress ECG: CONCLUSIONS Good exercise tolerance Normal EKG and response to exercise Please follow up on the Cardiolite portion Dr. Alvarez Jay MD (Electronically Signed) Final Date: 24 May 2022 11:32
--- NOTE | 2022-05-24 13:46 | NM ---
EXAMINATION TYPE: NM stress cardiolite complete DATE OF EXAM: 05/24/2022 COMPARISON: NONE HISTORY: I25.10 atherosclerotic heart disease TECHNIQUE: After the intravenous administration of 9.6 mCi Tc 99m Sestamibi - Rest images obtained 4 5 minutes post injection. The patient exercised using a WARREN protocol and 1 minute prior to peak e xercise was injected with 24.8 mCi Tc 99m Sestamibi - Stress images obtained 35 minutes post injectio n. FINDINGS: Targeted heart rate was achieved during performance of the study. Review of stress and rest SPECT refugio ges demonstrates no distinct perfusion abnormality. Gated analysis shows normal wall motion with an estimated left ventricular ejection fraction of 65 %. IMPRESSION: No scintigraphic evidence for reversible ischemia
== END | disposition home or self-care (01) ==
LOC: RADNMMAIN 08:06
PROVIDERS: ATTEND Internal Medicine
DX: I65.23 Occlusion and stenosis of bilateral carotid arteries (principal); I25.10 Atherosclerotic heart disease of native coronary artery without angina pectoris
CPT/HCPCS: 93017; 93880; 78452; A9500

== ENCOUNTER → 2022-11-06 | Outpatient (CLI) | payer BC ==
[2022-11-06 19:06] LABS: Hepatitis B Surface Antigen Nonreactive (Nonreactive)
== END | disposition home or self-care (01) ==
LOC: LABWHC1 11:38
PROVIDERS: ATTEND Internal Medicine Gastroenterology
DX: K50.80 Crohn's disease of both small and large intestine without complications (principal)
CPT/HCPCS: 36415; 86480; 86704; 87340

== ENCOUNTER 2022-11-28 10:01 | Day surgery (SDC) | payer MEDICARE ==
[2022-11-23 13:43] VITALS: BMI 32.0
[~2022-11-28 10:01] MED LIST changes: -GLUCAGON 1 MG/ML VIAL IM STA; +LACTATED RINGERS 1,000 ML IV SCH; +LIDOCAINE 1% (10MG/ML) FOR IV START INTRADERMA PRN
[2022-11-28 10:27] VITALS: TEMP 97
[2022-11-28] MEDS ORDERED: PROPOFOL 10 MG/ML 20 ML VIAL IV ONE (11:08)
--- NOTE | 2022-11-28 11:27 | P.PCN ---
Date of Procedure: 11/28/22 Procedure(s) Performed: BRIEF HISTORY: Patient is a 67-year-old pleasant female scheduled for an elective colonoscopy as a part of surveillance of long-standing history of Crohn's disease. She was diagnosed with Crohn's ileitis in her early 20s. Presently maintained on Remicade infusions as well as azathioprine 100 mg daily. PROCEDURE PERFORMED: Colonoscopy. PREOPERATIVE DIAGNOSIS: Long-standing history of Crohn's revealed. IV sedation per Anesthesia. PROCEDURE: After informed consent was obtained, the patient, was brought into the endoscopy unit. IV sedation was administered by Anesthesia under continuous monitoring. Digital rectal examination was normal. Initially the Olympus CF-160 flexible video colonoscope was then inserted in the rectum, gradually advanced into the cecum without any difficulty. Careful examination was performed as the scope was gradually being withdrawn. Ileocecal valve and the appendiceal orifice were visualized and appeared normal. Prep was excellent. Mucosa of the cecum, ascending colon, transverse colon, descending colon, sigmoid colon, and rectum appeared normal. There was some crowding of the mucosal folds noted in the proximal rectum but no obvious colitis seen. Retroflexion was performed in the rectum and no lesions were seen. The patient tolerated the procedure well. IMPRESSION: Normal-appearing colon from rectum to cecum with no evidence of active colitis or colorectal neoplasia. Some crowding of the mucosal folds in the proximal rectum but no evidence of active colitis or colorectal neoplasia RECOMMENDATIONS: Findings of this examination were discussed with the patient as well his family. She was advised to have a repeat colonoscopy in 5 years..
[2022-11-28 11:40] VITALS: BP 112/75; PULSE 74; RESP 20
== END 2022-11-28 12:10 | disposition home or self-care (01) ==
LOC: ORWHC2ENDO 10:01
PROVIDERS: ATTEND Internal Medicine Gastroenterology
DX: K50.00 Crohn's disease of small intestine without complications (principal); Z79.891 Long term (current) use of opiate analgesic; Z79.899 Other long term (current) drug therapy; Z98.49 Cataract extraction status, unspecified eye; Z98.890 Other specified postprocedural states
CPT/HCPCS: 45378; J2704

== ENCOUNTER → 2023-03-19 | Outpatient (CLI) | payer MEDICARE ==
[~2023-03-19] MED LIST changes: +INFLIXIMAB-DYYB 700 MG in SODIUM CHLORIDE 0.9% 180 ML IV NR; -LACTATED RINGERS 1,000 ML IV SCH; -LIDOCAINE 1% (10MG/ML) FOR IV START INTRADERMA PRN; +SODIUM CHLORIDE 0.9% 500 ML 500 ML in EMPTY BAG 1 BAG IV PRN
[2023-03-19 11:08] VITALS: RESP 16; TEMP 97.5
[2023-03-19 12:18] VITALS: BP 127/77; PULSE 68
== END ==
LOC: PROCWHC3 10:20
PROVIDERS: ATTEND Internal Medicine Gastroenterology
DX: K50.90 Crohn's disease, unspecified, without complications (principal)
CPT/HCPCS: 96413; 96415; Q5103

== ENCOUNTER → 2023-05-07 | Outpatient (CLI) | payer MEDICARE ==
[~2023-05-07] MED LIST changes: -INFLIXIMAB-DYYB 700 MG in SODIUM CHLORIDE 0.9% 180 ML IV NR
[2023-05-07 09:27] VITALS: RESP 16; TEMP 98.1
[2023-05-07 10:58] VITALS: BP 124/65; PULSE 63
== END ==
LOC: PROCWHC3 09:08
PROVIDERS: ATTEND Internal Medicine Gastroenterology
DX: K50.80 Crohn's disease of both small and large intestine without complications (principal)
CPT/HCPCS: 96413; 96415; J1745

== ENCOUNTER → 2023-06-25 | Outpatient (CLI) | payer MEDICARE ==
[2023-06-25 08:01] VITALS: RESP 16; TEMP 98.1
[2023-06-25 09:58] VITALS: BP 130/78; PULSE 63
[2023-06-25 10:40] LABS: Basophils # (A) 0.1 k/uL (0-0.2); Basophils % (A) 1 %; Eosinophils # (A) 0.2 k/uL (0-0.7); Eosinophils % (A) 3 %; HCT 39.7 % (34.0-46.0); HGB 14.1 gm/dL (11.4-16.0); Lymphocytes # (A) 0.5 k/uL (1.0-4.8); Lymphocytes % (A) 11 %; MCH 31.5 pg (25.0-35.0); MCHC 35.5 g/dL (31.0-37.0); MCV 88.8 fL (80.0-100.0); Mean Platelet Volume 10.5; Monocytes # (A) 0.4 k/uL (0-1.0); Monocytes % (A) 8 %; Neutrophils # (A) 3.7 k/uL (1.3-7.7); Neutrophils % (A) 73 %; Platelet Count 172 k/uL (150-450); RBC 4.48 m/uL (3.80-5.40); RDW 13.3 % (11.5-15.5)
[2023-06-25 11:04] LABS: ALT 42 U/L (4-34); AST 31 U/L (14-36); African American GFR (CKD) >90 (>60 ml/min/1.73 sqM); Albumin 4.1 g/dL (3.5-5.0); Alkaline Phosphatase 125 U/L (38-126); Anion Gap 9 mmol/L; Blood Urea Nitrogen 15 mg/dL (7-17); Calcium 8.8 mg/dL (8.4-10.2); Carbon Dioxide 26 mmol/L (22-30); Chloride 101 mmol/L (98-107); Glucose 118 mg/dL (74-99); Non-African American GFR(CKD) >90 (>60 ml/min/1.73 sqM); Potassium 4.5 mmol/L (3.5-5.1); Sodium 136 mmol/L (137-145); Total Bilirubin 0.7 mg/dL (0.2-1.3); Total Protein 7.6 g/dL (6.3-8.2)
== END ==
LOC: PROCWHC3 07:47
PROVIDERS: ATTEND Internal Medicine Gastroenterology
DX: K50.80 Crohn's disease of both small and large intestine without complications (principal)
CPT/HCPCS: 80053; 85025; 96413; 96415; J1745; 96365; 96366

== ENCOUNTER → 2023-08-08 | Outpatient (CLI) | payer MEDICARE ==
[2023-08-08 07:40] VITALS: RESP 16; TEMP 98.1
[2023-08-08 09:09] VITALS: BP 106/67; PULSE 60
== END ==
LOC: PROCWHC3 07:26
PROVIDERS: ATTEND Internal Medicine Gastroenterology
DX: K50.80 Crohn's disease of both small and large intestine without complications (principal)
CPT/HCPCS: 96413; 96415; J1745

== ENCOUNTER → 2023-09-17 | Outpatient (CLI) | payer MEDICARE ==
--- NOTE | 2023-09-18 07:40 | MM ---
Reason for Exam: Screening (asymptomatic). Last mammogram was performed 1 year(s) and 6 month(s) ago. Patient History: Menarche at age 13. First Full-Term at age 27. Postmenopausal. Mother had breast cancer, age 69. Risk Values: Raina 5 year model risk: 3.3%. NCI Lifetime model risk: 11.1%. Prior Study Comparison: 11/05/2018 Right Diagnostic Mammogram, [facility]. 04/21/2019 Bilateral Screening Mammogram, [facility]. 02/20/2022 Bilateral Screening Mammogram, [facility]. Tissue Density: The breast tissue is heterogeneously dense. This may lower the sensitivity of mammography. Findings: Analyzed By CAD. There is no suspicious group of microcalcifications or new suspicious mass in either breast. Benign calcifications within both breasts. Overall Assessment: Benign, BI-RAD 2 Management: Screening Mammogram of both breasts in 1 year. A clinical breast exam by your physician is recommended on an annual basis and results should be correlated with mammographic findings. Note on Raina scores and lifetime risk: 1. A Raina score greater than 3% is considered moderate risk. If this is the case, consider specialist referral to assess eligibility for a risk reducing agent. If overall lifetime risk for the development of breast cancer is 20% or higher, the patient may qualify for future screening with alternating mammogram and breast MRI. Electronically signed and approved by: Zach Vaz D.O.
== END | disposition home or self-care (01) ==
LOC: RADMAMWWP 07:30
PROVIDERS: ATTEND Internal Medicine
DX: Z00.00 Encounter for general adult medical examination without abnormal findings (principal); Z12.31 Encounter for screening mammogram for malignant neoplasm of breast; Z78.0 Asymptomatic menopausal state; Z80.3 Family history of malignant neoplasm of breast
CPT/HCPCS: 77063; 77067

== ENCOUNTER → 2023-09-26 | Outpatient (CLI) | payer MEDICARE ==
[2023-09-26 08:22] LABS: Basophils % (A) 1 %; Eosinophils # (A) 0.2 k/uL (0-0.7); Eosinophils % (A) 4 %; HCT 41.6 % (34.0-46.0); HGB 14.2 gm/dL (11.4-16.0); Lymphocytes # (A) 0.6 k/uL (1.0-4.8); Lymphocytes % (A) 11 %; MCH 31.2 pg (25.0-35.0); MCHC 34.2 g/dL (31.0-37.0); MCV 91.1 fL (80.0-100.0); Mean Platelet Volume 7.7; Monocytes # (A) 0.4 k/uL (0-1.0); Monocytes % (A) 8 %; Neutrophils % (A) 74 %; Platelet Count 177 k/uL (150-450); RBC 4.56 m/uL (3.80-5.40); RDW 13.3 % (11.5-15.5); WBC 5.5 k/uL (3.8-10.6)
[2023-09-26 08:25] VITALS: TEMP 98.3
[2023-09-26 08:31] LABS: ALT 36 U/L (4-34); AST 27 U/L (14-36); African American GFR (CKD) >90 (>60 ml/min/1.73 sqM); Alkaline Phosphatase 114 U/L (38-126); Anion Gap 10 mmol/L; Blood Urea Nitrogen 17 mg/dL (7-17); Carbon Dioxide 22 mmol/L (22-30); Chloride 104 mmol/L (98-107); Glucose 121 mg/dL (74-99); Non-African American GFR(CKD) >90 (>60 ml/min/1.73 sqM); Potassium 4.4 mmol/L (3.5-5.1); Sodium 136 mmol/L (137-145); Total Protein 7.3 g/dL (6.3-8.2)
[2023-09-26 10:11] VITALS: BP 125/77; PULSE 61; RESP 16
== END ==
LOC: PROCWHC3 07:57
PROVIDERS: ATTEND Internal Medicine Gastroenterology
DX: K50.80 Crohn's disease of both small and large intestine without complications (principal)
CPT/HCPCS: 80053; 85025; 96413; 96415; J1745

== ENCOUNTER → 2023-11-14 | Outpatient (CLI) | payer MEDICARE ==
[2023-11-14 09:23] VITALS: TEMP 98.2
[2023-11-14 09:49] VITALS: RESP 16
[2023-11-14 10:37] VITALS: BP 119/72; PULSE 60
== END ==
LOC: PROCWHC3 08:51
PROVIDERS: ATTEND Internal Medicine Gastroenterology
DX: K50.80 Crohn's disease of both small and large intestine without complications (principal)
CPT/HCPCS: 96413; 96415; J1745

== ENCOUNTER → 2024-01-02 | Outpatient (CLI) | payer MEDICARE ==
[2024-01-02] MEDS: SODIUM CHLORIDE 0.9% 500 ML 500 ML in EMPTY BAG 1 BAG IV PRN (08:40)
[2024-01-02 08:50] VITALS: RESP 16; TEMP 98.4
[2024-01-02 09:52] VITALS: BP 119/76
[2024-01-02 10:23] VITALS: PULSE 60
== END ==
LOC: PROCWHC3 08:22
PROVIDERS: ATTEND Internal Medicine Gastroenterology
DX: K50.80 Crohn's disease of both small and large intestine without complications (principal)
CPT/HCPCS: 96413; 96415; J1745

== ENCOUNTER → 2024-02-20 | Outpatient (CLI) | payer MEDICARE ==
[2024-02-20] MEDS: SODIUM CHLORIDE 0.9% 500 ML 500 ML in EMPTY BAG 1 BAG IV PRN (08:13)
[2024-02-20 08:17] VITALS: TEMP 97
[2024-02-20 08:26] LABS: Basophils % (A) 1 %; Eosinophils # (A) 0.1 k/uL (0-0.7); Eosinophils % (A) 3 %; HCT 41.6 % (34.0-46.0); HGB 14.4 gm/dL (11.4-16.0); Lymphocytes # (A) 0.5 k/uL (1.0-4.8); Lymphocytes % (A) 11 %; MCH 30.7 pg (25.0-35.0); MCHC 34.5 g/dL (31.0-37.0); Mean Platelet Volume 7.9; Monocytes # (A) 0.4 k/uL (0-1.0); Monocytes % (A) 7 %; Neutrophils # (A) 3.7 k/uL (1.3-7.7); Neutrophils % (A) 75 %; Platelet Count 219 k/uL (150-450); RBC 4.68 m/uL (3.80-5.40); RDW 13.3 % (11.5-15.5)
[2024-02-20 08:35] LABS: ALT 35 U/L (4-34); AST 28 U/L (14-36); African American GFR (CKD) >90 (>60 ml/min/1.73 sqM); Albumin 3.9 g/dL (3.5-5.0); Alkaline Phosphatase 124 U/L (38-126); Anion Gap 9 mmol/L; Blood Urea Nitrogen 15 mg/dL (7-17); Calcium 8.8 mg/dL (8.4-10.2); Carbon Dioxide 24 mmol/L (22-30); Chloride 105 mmol/L (98-107); Glucose 193 mg/dL (74-99); Non-African American GFR(CKD) >90 (>60 ml/min/1.73 sqM); Potassium 4.2 mmol/L (3.5-5.1); Sodium 138 mmol/L (137-145); Total Bilirubin 0.7 mg/dL (0.2-1.3)
[2024-02-20 09:38] VITALS: RESP 16
[2024-02-20 10:20] VITALS: BP 120/75; PULSE 68
== END ==
LOC: PROCWHC3 07:57
PROVIDERS: ATTEND Internal Medicine Gastroenterology
DX: K50.80 Crohn's disease of both small and large intestine without complications (principal)
CPT/HCPCS: 80053; 85025; 96413; 96415; J1745

== ENCOUNTER → 2024-04-09 | Outpatient (CLI) | payer MEDICARE ==
[2024-04-09] MEDS: SODIUM CHLORIDE 0.9% 500 ML 500 ML in EMPTY BAG 1 BAG IV PRN (08:08)
[2024-04-09 08:18] VITALS: TEMP 98
[2024-04-09 10:13] VITALS: BP 122/72; PULSE 58; RESP 16
== END ==
LOC: PROCWHC3 07:55
PROVIDERS: ATTEND Internal Medicine Gastroenterology
DX: K50.80 Crohn's disease of both small and large intestine without complications (principal)
CPT/HCPCS: 96413; 96415; J1745

== ENCOUNTER → 2024-05-28 | Outpatient (CLI) | payer MEDICARE ==
[2024-05-28 08:09] VITALS: RESP 16; TEMP 98.2
[2024-05-28] MEDS: SODIUM CHLORIDE 0.9% 500 ML 500 ML in EMPTY BAG 1 BAG IV PRN (08:10)
[2024-05-28 09:45] VITALS: BP 125/77; PULSE 80
== END ==
LOC: PROCWHC3 07:55
PROVIDERS: ATTEND Internal Medicine Gastroenterology
DX: K50.80 Crohn's disease of both small and large intestine without complications (principal)
CPT/HCPCS: 96365; 96366; J1745

== ENCOUNTER → 2024-07-16 | Outpatient (CLI) | payer MEDICARE ==
[2024-07-16 08:37] VITALS: RESP 16; TEMP 98.2
[2024-07-16] MEDS: SODIUM CHLORIDE 0.9% 500 ML 500 ML in EMPTY BAG 1 BAG IV PRN (08:43)
[2024-07-16 10:00] VITALS: BP 129/75; PULSE 59
== END ==
LOC: PROCWHC3 08:24
PROVIDERS: ATTEND Internal Medicine Gastroenterology
DX: K50.80 Crohn's disease of both small and large intestine without complications (principal)
CPT/HCPCS: 96413; 96415

== ENCOUNTER → 2024-09-10 | Outpatient (CLI) | payer MEDICARE ==
[2024-09-10 08:15] VITALS: TEMP 98.1
[2024-09-10] MEDS: SODIUM CHLORIDE 0.9% 500 ML 500 ML in EMPTY BAG 1 BAG IV PRN (08:17)
[2024-09-10] MEDS: INFLIXIMAB IV NR (08:47)
[2024-09-10] MEDS: SODIUM CHLORIDE 0.9% IV NR (08:47)
[2024-09-10 10:06] VITALS: BP 126/77; PULSE 58; RESP 15
== END ==
LOC: PROCWHC3 08:00
PROVIDERS: ATTEND Internal Medicine Gastroenterology
DX: K50.80 Crohn's disease of both small and large intestine without complications (principal)
CPT/HCPCS: 96365; 96366; 96413; 96415

== ENCOUNTER → 2024-09-24 | Outpatient (CLI) | payer MEDICARE ==
--- NOTE | 2024-09-28 09:13 | MM ---
Reason for Exam: Screening (asymptomatic). Last mammogram was performed 1 year(s) and 1 month(s) ago. Patient History: Menarche at age 13. First Full-Term at age 27. Postmenopausal. Mother had breast cancer, age 69. Risk Values: Raina 5 year model risk: 3.4%. NCI Lifetime model risk: 10.7%. Prior Study Comparison: 04/21/2019 Bilateral Screening Mammogram, [facility]. 02/20/2022 Bilateral Screening Mammogram, [facility]. 09/17/2023 Bilateral MG 3D screening mammo w/cad, [facility]. Tissue Density: There are scattered areas of fibroglandular density. Findings: Analyzed By CAD. Right breast: There is no suspicious group of microcalcifications or new suspicious mass. Benign-appearing calcifications right breast. Left breast: There is no suspicious group of microcalcifications or new suspicious mass. Benign-appearing calcifications left breast. Overall Assessment: Benign, BI-RAD 2 Management: Screening Mammogram of both breasts in [address] [facility] will attempt to contact patient to return for supplemental views and ultrasound if indicated. Patient should continue monthly self-breast exams. A clinical breast exam by your physician is recommended on an annual basis. This exam should not preclude additional follow-up of suspicious palpable abnormalities. Note on Raina scores and lifetime risk: 1. A Raina score greater than 3% is considered moderate risk. If this is the case, consider specialist referral to assess eligibility for a risk reducing agent. 2. If overall lifetime risk for the development of breast cancer is 20% or higher, the patient may qualify for future screening with alternating mammogram and breast MRI. [facility], , 09/28/2024 9:09 AM. Electronically signed and approved by: Denilson Steele DO
== END | disposition home or self-care (01) ==
LOC: RADMAMWWP 08:46
PROVIDERS: ATTEND Internal Medicine
DX: Z12.31 Encounter for screening mammogram for malignant neoplasm of breast (principal); R92.323 Mammographic fibroglandular density, bilateral breasts; Z78.0 Asymptomatic menopausal state; Z80.3 Family history of malignant neoplasm of breast
CPT/HCPCS: 77063; 77067

== ENCOUNTER → 2024-09-24 | Outpatient (CLI) | payer MEDICARE ==
[2024-09-24 15:23] LABS: ALT 44 U/L (8-49); AST 25 U/L (13-35); Albumin 4.1 g/dL (3.8-4.9); Albumin/Globulin Ratio 1.52 Ratio (1.60-3.17); Alkaline Phosphatase 126 U/L (41-126); BUN/Creat Ratio 23.83 Ratio (12.00-20.00); Blood Urea Nitrogen 14.3 mg/dL (9.0-27.0); Carbon Dioxide 25.9 mmol/L (21.6-31.8); Chloride 105 mmol/L (96-109); Globulin 2.7 g/dL (1.6-3.3); Glucose 111 mg/dL (70-110); Potassium 4.6 mmol/L (3.5-5.5); Sodium 141 mmol/L (135-145); Total Bilirubin 0.8 mg/dL (0.3-1.2); Total Protein 6.8 g/dL (6.2-8.2)
[2024-09-24 15:28] LABS: Basophils # (A) 0.05 X 10*3/uL (0.00-0.10); Basophils % (A) 0.9 %; Eosinophils # (A) 0.11 X 10*3/uL (0.04-0.35); Eosinophils % (A) 2.1 %; HCT 40.1 % (37.2-50.0); HGB 13.6 g/dL (12.0-17.0); Lymphocytes # (A) 0.86 X 10*3/uL (0.90-5.00); Lymphocytes % (A) 16.2 %; MCH 30.2 pg (27.0-32.0); MCHC 33.9 g/dL (32.0-37.0); MCV 88.9 FL (80.0-97.0); Mean Platelet Volume 10.7 FL (9.5-12.2); Monocytes # (A) 0.53 X 10*3/uL (0.20-1.00); NRBC Per 100 WBC 0 X 10*3/uL (0.00-0.01); Neutrophils # (A) 3.74 X 10*3/uL (1.80-7.70); Neutrophils % (A) 70.6 %; Platelet Count 193 X 10*3/uL (140-440); RBC 4.51 X 10*6/uL (4.10-5.60); RDW 12.8 % (11.5-14.5)
== END | disposition home or self-care (01) ==
LOC: LABWHC1 09:28
PROVIDERS: ATTEND Internal Medicine Gastroenterology
DX: K50.80 Crohn's disease of both small and large intestine without complications (principal)
CPT/HCPCS: 36415; 80053; 85025

== ENCOUNTER → 2024-10-29 | Outpatient (CLI) | payer MEDICARE ==
[~2024-10-29] MED LIST changes: +SODIUM CHLORIDE 0.9% 250 ML in EMPTY BAG 1 BAG IV PRN; -SODIUM CHLORIDE 0.9% 500 ML 500 ML in EMPTY BAG 1 BAG IV PRN
[2024-10-29] MEDS: SODIUM CHLORIDE 0.9% 500 ML 500 ML in EMPTY BAG 1 BAG IV PRN (08:21)
[2024-10-29 08:26] VITALS: TEMP 97.8
[2024-10-29] MEDS: INFLIXIMAB IV NR (08:44)
[2024-10-29] MEDS: SODIUM CHLORIDE 0.9% IV NR (08:44)
[2024-10-29 09:22] VITALS: PULSE 57; RESP 16
[2024-10-29 09:47] VITALS: BP 120/72
== END ==
LOC: PROCWHC3 07:56
PROVIDERS: ATTEND Internal Medicine Gastroenterology
DX: K50.80 Crohn's disease of both small and large intestine without complications (principal)
CPT/HCPCS: 96413; 96415; J1745; 36415

== ENCOUNTER → 2025-02-18 | Outpatient (CLI) | payer MEDICARE ==
[2025-02-18 08:16] VITALS: RESP 16; TEMP 98
[2025-02-18] MEDS: SODIUM CHLORIDE 0.9% 500 ML 500 ML in EMPTY BAG 1 BAG IV PRN (08:20)
[2025-02-18] MEDS: INFLIXIMAB IV NR (08:52)
[2025-02-18] MEDS: SODIUM CHLORIDE 0.9% IV NR (08:52)
[2025-02-18 10:02] VITALS: BP 120/68; PULSE 64
== END ==
LOC: PROCWHC3 08:00
PROVIDERS: ATTEND Internal Medicine Gastroenterology
DX: K50.80 Crohn's disease of both small and large intestine without complications (principal)
CPT/HCPCS: 96413; 96415; J1745

== ENCOUNTER → 2025-06-08 | Outpatient (CLI) | payer MEDICARE ==
[2025-06-08 08:12] VITALS: RESP 16; TEMP 97.9
[2025-06-08] MEDS: SODIUM CHLORIDE 0.9% 500 ML 500 ML in EMPTY BAG 1 BAG IV PRN (08:15)
[2025-06-08] MEDS: SODIUM CHLORIDE 0.9% IV NR (08:41)
[2025-06-08] MEDS: INFLIXIMAB IV NR (08:41)
[2025-06-08 09:45] VITALS: BP 116/69; PULSE 54
== END ==
LOC: PROCWHC3 07:54
PROVIDERS: ATTEND Internal Medicine Gastroenterology
DX: K50.80 Crohn's disease of both small and large intestine without complications (principal)
CPT/HCPCS: 96413; 96415; J1745